=== PATIENT | male | born 1990 | race Asian ===

== ENCOUNTER 2019-10-16 13:32 | Emergency (ER) | payer OTHER ==
[~2019-10-16] VITALS: Ht 170.2 cm; Wt 77.1 kg
[2019-10-16 13:40] VITALS: BP 141/89
== END 2019-10-16 14:10 | disposition home or self-care (01) ==
LOC: ER 13:34
DX: B02.9 Zoster without complications (principal); J45.909 Unspecified asthma, uncomplicated